=== PATIENT | male | born 1955 | race Hispanic/Latino ===

== ENCOUNTER 2018-07-15 02:48 | Inpatient (IN) | payer BC, OTHER ==
[~2018-07-15] VITALS: Ht 167.6 cm; Wt 109.3 kg
[2018-07-15] VITALS (33 sets, daily range): BP systolic 73–170; BP diastolic 33–88
[2018-07-15] MEDS ORDERED: ACETAMINOPHEN EXTRA STRENGTH 500 MG TABLET ONE (03:23)
[2018-07-15] MEDS ORDERED: SODIUM CHLORIDE 0.9% 1000ML 2,000 ML IV ONE (03:23)
[2018-07-15] MEDS ORDERED: LEVOFLOXACIN 750 MG/D5W 150 ML 150 ML ONE (03:44)
[2018-07-15] MEDS ORDERED: ONDANSETRON HCL 4 MG/2 ML VIAL ONE (03:44)
[2018-07-15 03:45] LABS: CARBON DIOXIDE 26 mmol/L (21-32); CHLORIDE 99 mmol/L (101-111); CREATININE 2.1 mg/dL (0.5-1.5); GLOMERULAR FILTR. RATE CALC 34 mL/min (>60); GLUCOSE,RANDOM 120 mg/dL (70-105); POTASSIUM 3.4 mmol/L (3.5-5.1); SODIUM SERUM 135 mmol/L (136-145); UREA NITROGEN, BLOOD 46 mg/dL (7-18)
[2018-07-15] MEDS ORDERED: METRONIDAZOLE 500MG/100ML BAG 100 ML ONE (03:45)
[2018-07-15] MEDS ORDERED: MORPHINE SULFATE 4 MG/1ML SYG ONE (03:45)
[2018-07-15 03:46] LABS: INR 1.02 (0.85-1.15); PARTIAL THROMBOPLASTIN TIME 26.9 SEC (26.3-35.5); PROTHROMBIN TIME 10.7 SEC (9.6-11.6)
[2018-07-15 03:50] LABS: ALANINE AMINOTRANSFERASE 20 U/L (12-78); ALBUMIN 2.8 g/dL (3.5-5.0); ASPARTATE AMINOTRANSFERASE 22 U/L (10-37); BILIRUBIN,TOTAL 1.4 mg/dL (0.2-1.0); CREATINE KINASE, TOTAL 49 U/L (21-232); MYOGLOBIN 160 ng/mL (10-92); TOTAL PROTEIN, SERUM 6.6 g/dL (6.0-8.3); TROPONIN I < 0.04 ng/mL (0.00-0.06)
[2018-07-15 03:54] LABS: BASOPHILS % (AUTO) 0.3 % (0.0-5.0); EOSINOPHILS % (AUTO) 0.4 % (0.0-8.0); HEMATOCRIT 39.6 % (42-54); LYMPHOCYTES % (AUTO) 7.1 % (21.0-51.0); MEAN CORPUSCULAR HEMOGLOBIN 32.1 pg (27.0-33.0); MEAN CORPUSCULAR HGB CONC 34.3 g/dL (32.0-36.0); MEAN CORPUSCULAR VOLUME 93.4 fL (79-99); MONOCYTES % (AUTO) 0.6 % (3.0-13.0); NEUTROPHILS % (AUTO) 91.6 % (40.0-77.0); NUCLEATED RED BLOOD CELLS 0.5 % (0.0-0.19); PLATELET COUNT (AUTO) 166 K/uL (130-400); RED BLOOD CELL COUNT(AUTO) 4.24 MIL/uL (4.50-6.20); RED CELL DISTRIBUTION WIDTH 12.6 % (11.0-15.5)
[2018-07-15 03:58] LABS: WHITE BLOOD COUNT (AUTO) 0.8 K/uL (4.8-10.8)
[2018-07-15 05:22] LABS: BILIRUBIN,URINE Moderate (NEGATIVE); COLOR,URINE Dark Yellow (YELLOW); GLUCOSE, URINE (UA) Negative (NEGATIVE); KETONES,URINE Trace mg/dL (NEGATIVE); LEUKOCYTE ESTERASE ,URINE Trace (NEGATIVE); NITRATE,URINE Negative (NEGATIVE); OCCULT BLOOD,URINE Negative (NEGATIVE); PROTEIN,URINE POS 2+ mg/dL (NEGATIVE)
[2018-07-15 05:25] LABS: APPEARANCE,URINE SLIGHTLY CLOUDY (CLEAR)
[2018-07-15 05:45] LABS: AMORPHOUS SEDIMENT,UR Few /LPF (None Seen); BACTERIA,URINE None Seen /HPF (None Seen); RBC,URINE None Seen /HPF (0-1); SQUAMOUS EPITHELIAL CELL,UR Rare /HPF (0-2); WBC,URINE 0-1 /HPF (0-1)
[2018-07-15] MEDS ORDERED: MEROPENEM 1 GM VIAL ONE (06:11)
[2018-07-15] MEDS ORDERED: SODIUM CHLORIDE 0.9% 1000ML 1,000 ML IV ONE (06:20)
[2018-07-15] MEDS ORDERED: SODIUM CHLORIDE 0.9% 1000ML 1,000 ML IV SCH (07:00)
[2018-07-15] MEDS ORDERED: ONDA4TAB10 PO (07:49)
[2018-07-15] MEDS ORDERED: HYOS-28 PO (07:49)
[2018-07-15] MEDS ORDERED: LISI1TAB9 PO (07:49)
[2018-07-15] MEDS ORDERED: NOREPINEPHRINE BITARTRATE 1 MG/1 ML ML IV ONE (08:13)
[2018-07-15] MEDS ORDERED: SODIUM CHLORIDE 0.9% 250 ML IV ONE (08:14)
[2018-07-15] MEDS ORDERED: DEXTROSE 50%-WATER 50 ML DISP.SYRIN IV PRN (08:15)
[2018-07-15] MEDS ORDERED: ONDANSETRON HCL 4 MG/2 ML VIAL IVP PRN (08:15)
[2018-07-15] MEDS ORDERED: ACETAMINOPHEN 650 MG SUPPOSITORY RC PRN (08:15)
[2018-07-15] MEDS ORDERED: GLUCAGON 1MG KIT 1 MG ML IM PRN (08:15)
[2018-07-15] MEDS ORDERED: LIDOCAINE HCL-MPF 1% 2ML VIAL IVP PRN (08:15)
[2018-07-15] MEDS ORDERED: POTASSIUM CHLORIDE 20MEQ/100ML 100 ML IV PRN (08:15)
[2018-07-15] MEDS ORDERED: MORPHINE SULFATE 2 MG/ML 1ML SYG IVP PRN ×2 (08:30→16:45)
[2018-07-15] MEDS ORDERED: LEVOFLOXACIN 500 MG/D5W 100 ML 100 ML IV SCH (11:15)
[2018-07-15] MEDS ORDERED: INSULIN HUMULIN R 100 UNIT/ML 3ML SQ SCH (11:30)
[2018-07-15] MEDS: METRONIDAZOLE 500MG/100ML BAG 100 ML IV SCH ×3 (12:00→21:48)
[2018-07-15] MEDS: SODIUM CHLORIDE 0.9% 1000ML 1,000 ML IV SCH ×2 (12:17→16:40)
[2018-07-15] MEDS ORDERED: NOREPINEPHRINE 4MG/NS 250ML 250 ML IV SCH (12:30)
[2018-07-15] MEDS ORDERED: LIDOCAINE HCL 1% 20 ML VIAL ONE (12:35)
[2018-07-15] MEDS ORDERED: BUPIVACAINE/EPI/PF 0.5% 30ML VIAL IJ ONE (12:36)
[2018-07-15] MEDS ORDERED: BACITRACIN 50,000 UNIT VIAL ONE (12:36)
[2018-07-15] MEDS ORDERED: TBO-FILGRASTIM 480 MCG/0.8 ML ML SQ SCH ×2 (13:00→13:15)
[2018-07-15 13:02] LABS: CREATININE,URINE RANDOM 283 mg/dL (30-135); PROTEIN,URINE RANDOM 123.4 mg/dL (0-11.9); SODIUM,URINE RANDOM < 15 mmol/l (40-220)
[2018-07-15] MEDS ORDERED: KETAMINE HCL 100 MG/ML 5ML VIAL IJ ONE (13:18)
[2018-07-15] MEDS ORDERED: MIDAZOLAM HCL 1 MG/ML 2ML VIAL ONE (13:25)
[2018-07-15] MEDS ORDERED: VASOPRESSIN 20 UNITS/ML 1ML VIAL ONE (13:29)
[2018-07-15] MEDS ORDERED: ROCURONIUM 10MG/1ML SYR 10 MG/ML ML ONE ×2 (13:33→14:24)
[2018-07-15] MEDS ORDERED: SUCCINYLCHOLINE CHLORIDE 20 MG/ML 10 ML VIAL ONE (13:34)
[2018-07-15] MEDS ORDERED: PROPOFOL 10 MG/ML 20ML VIAL IV ONE (13:35)
--- NOTE | 2018-07-15 13:45 | NUR ---
INITIAL: Met with pt and family this afternoon to discuss dcp. Pt states that he lives alone. Prior to admission he was independent w ambulation and ADLs. Pt was still driving prior to admission. Per pt he feels safe and comfortable to return home at md. CM to continue to follow and wait for Md recommendations. Addendum: 07/15/18 at 1347 by CECILE CAPELLAN Amended: Links added.
[2018-07-15] MEDS ORDERED: METRONIDAZOLE 500MG/100ML BAG 100 ML IV SCH (14:00)
[2018-07-15 14:16] LABS: ABG BASE EXCESS -5.8 mmol/L (-2.0-3.0); ABG HCO3 21.1 mmol/L (21.0-28.0); ABG OXYGEN SATURATION 95.2 % (95.0-99.0); ABG PCO2 47 mmHg (35-48)
[2018-07-15] MEDS ORDERED: PROPOFOL 1000 MG/100 ML 100 ML IV ONE (16:31)
[2018-07-15] MEDS: LEVOFLOXACIN 750 MG/D5W 150 ML 150 ML IV SCH (16:45)
[2018-07-15] MEDS ORDERED: MORPHINE SULFATE 4 MG/1ML SYG IVP PRN (16:45)
[2018-07-15] MEDS ORDERED: D5W-1/2 NS/20MEQ KCL 1,000 ML IV SCH (17:00)
--- NOTE | 2018-07-15 17:45 | NUR ---
AWAKENED/RESTLESS/AGITATED - COMMUNICATES PAIN AND REORIENTED TO TIME PLACE AND CURRENT STATUS INCLUDING ETT AND BEARDEN. MEDICATED FOR PAIN
[2018-07-15] MEDS: INSULIN HUMULIN R 100 UNIT/ML 3ML SQ SCH ×2 (18:00→23:42)
--- NOTE | 2018-07-15 18:00 | NUR ---
OGT W/O DRAINAGE. PADMINI WITH SANGUINOUS DRAINAGE.
[2018-07-15] MEDS: PROPOFOL 1000 MG/100 ML 100 ML IV PRN ×2 (18:51→21:49)
[2018-07-15] MEDS ORDERED: NOREPINEPHRINE BITARTRATE 8 MG in SODIUM CHLORIDE 0.9% 250 ML IV SCH (19:15)
--- NOTE | 2018-07-15 19:30 | NUR ---
ASSESSMENT REMAINS ON VENT WITH ORDERED SETTINGS AND SEDATION. REMAINS ON REVERSE ISOLATION. ASSESSMENT COMPLETED SEE FLOW SHEET. FAMILY MEMBER AT BEDSIDE AND QUESTIONS ANSWERED. ENCOURAGED TO CALL FOR WANTS OR NEEDS. Addendum: 07/16/18 at 0304 by EHSAN PERAZA RN RN Amended: Links added.
[2018-07-15 19:48] LABS: ABG BASE EXCESS -5.7 mmol/L (-2.0-3.0); ABG HCO3 18.6 mmol/L (21.0-28.0); ABG PCO2 33 mmHg (35-48)
[2018-07-15] MEDS: LACTATED RINGERS 1000ML 1,000 ML IV SCH (20:18)
[2018-07-16] VITALS (33 sets, daily range): BP systolic 111–138; BP diastolic 46–81
[2018-07-16] MEDS: PROPOFOL 1000 MG/100 ML 100 ML IV PRN ×2 (01:00→06:23)
[2018-07-16] MEDS: LEVOFLOXACIN 750 MG/D5W 150 ML 150 ML IV SCH (04:12)
[2018-07-16] MEDS: METRONIDAZOLE 500MG/100ML BAG 100 ML IV SCH ×3 (05:32→22:28)
[2018-07-16] MEDS: INSULIN HUMULIN R 100 UNIT/ML 3ML SQ SCH ×4 (06:00→20:50)
[2018-07-16 06:50] LABS: BASOPHILS % (AUTO) 0.3 % (0.0-5.0); EOSINOPHILS % (AUTO) 11.5 % (0.0-8.0); HEMATOCRIT 36.7 % (42-54); LYMPHOCYTES % (AUTO) 1.8 % (21.0-51.0); MEAN CORPUSCULAR HEMOGLOBIN 32.5 pg (27.0-33.0); MEAN CORPUSCULAR HGB CONC 34.2 g/dL (32.0-36.0); MEAN CORPUSCULAR VOLUME 94.9 fL (79-99); MONOCYTES % (AUTO) 1.9 % (3.0-13.0); NEUTROPHILS % (AUTO) 84.5 % (40.0-77.0); NUCLEATED RED BLOOD CELLS 0.1 % (0.0-0.19); PLATELET COUNT (AUTO) 106 K/uL (130-400); RED BLOOD CELL COUNT(AUTO) 3.87 MIL/uL (4.50-6.20); RED CELL DISTRIBUTION WIDTH 13.3 % (11.0-15.5); WHITE BLOOD COUNT (AUTO) 19.6 K/uL (4.8-10.8)
[2018-07-16 07:04] LABS: ALBUMIN 1.9 g/dL (3.5-5.0); BILIRUBIN,TOTAL 1.3 mg/dL (0.2-1.0); CREATININE 2.1 mg/dL (0.5-1.5); POTASSIUM 4.1 mmol/L (3.5-5.1); TOTAL PROTEIN, SERUM 5.3 g/dL (6.0-8.3)
[2018-07-16 07:33] LABS: ABG BASE EXCESS -3.7 mmol/L (-2.0-3.0); ABG HCO3 20.5 mmol/L (21.0-28.0); ABG OXYGEN SATURATION 98.2 % (95.0-99.0); ABG PCO2 35 mmHg (35-48)
--- NOTE | 2018-07-16 08:30 | NUR ---
BILE IN THROAT: ACCORDING TO R.T. SHE SUCTIONED BILE OUT OF BACK OF THROAT - RETURN TO AC AND DIPRIVAN GIVEN - FOUND NGT COILED IN BACK OF THROAT AND REINSERTED - OBTAINED ONLY 50 CC BILE.
[2018-07-16] MEDS ORDERED: LEVOFLOXACIN 250 MG/D5W 50ML 50 ML IVPB SCH ×2 (09:00→11:00)
[2018-07-16 09:36] LABS: ABG BASE EXCESS -3.7 mmol/L (-2.0-3.0); ABG HCO3 20.6 mmol/L (21.0-28.0); ABG PCO2 35 mmHg (35-48)
[2018-07-16] MEDS: AZTREONAM 2 GM VIAL IVP SCH ×2 (11:15→21:03)
[2018-07-16] MEDS: LACTATED RINGERS 1000ML 1,000 ML IV SCH ×2 (11:17→22:28)
[2018-07-16] MEDS ORDERED: FUROSEMIDE 10 MG/ML 2ML VIAL IV SCH (19:00)
--- NOTE | 2018-07-16 20:15 | NUR ---
ASSESSMENT SITTING UP IN CHAIR. DENIES PAIN. DESIRES TO REMAIN UP IN CHAIR. ASSESSMENT COMPLETED SEE FLOW SHEET. REMINDED TO USE IS Q1H FOR 10 BREATHS TO PREVENT PNEUMONIA. ENCOURAGED TO CALL FOR WANTS OR NEEDS. Addendum: 07/16/18 at 2044 by EHSAN PERAZA RN RN Amended: Links added.
[2018-07-17] VITALS (21 sets, daily range): BP systolic 106–130; BP diastolic 48–75
[2018-07-17] MEDS: LEVOFLOXACIN 750 MG/D5W 150 ML 150 ML IV SCH (03:48)
[2018-07-17 04:11] LABS: HEMATOCRIT 35.2 % (42-54); MEAN CORPUSCULAR HEMOGLOBIN 32.3 pg (27.0-33.0); MEAN CORPUSCULAR HGB CONC 34.1 g/dL (32.0-36.0); MEAN CORPUSCULAR VOLUME 94.8 fL (79-99); PLATELET COUNT (AUTO) 86 K/uL (130-400); RED BLOOD CELL COUNT(AUTO) 3.71 MIL/uL (4.50-6.20); RED CELL DISTRIBUTION WIDTH 13.2 % (11.0-15.5); WHITE BLOOD COUNT (AUTO) 14.2 K/uL (4.8-10.8)
[2018-07-17 04:16] LABS: CREATININE 1.7 mg/dL (0.5-1.5)
[2018-07-17 04:37] LABS: BAND NEUTROPHILS % (MANUAL) 15 % (0-2); LYMPHOCYTES % (MANUAL) 3 % (22-44); MAN.DIFF COMMENT-IMPRESSION MANUAL DIFFERENTIAL; METAMYELOCYTES % 1 % (0-0); MONOCYTES % (MANUAL) 2 % (2-9); SEGMENTED NEUTROPHILS % 79 % (40-70)
[2018-07-17 04:38] LABS: PLATELET MORPHOLOGY COMMENT SLIGHTLY DECREASED
[2018-07-17] MEDS: INSULIN HUMULIN R 100 UNIT/ML 3ML SQ SCH ×4 (05:57→21:00)
[2018-07-17] MEDS: METRONIDAZOLE 500MG/100ML BAG 100 ML IV SCH ×3 (06:09→21:15)
--- NOTE | 2018-07-17 08:50 | NUR ---
MD ROUNDS DR. FLORIAN NAVARRO IN TO SEE PATIENT.
[2018-07-17] MEDS: AZTREONAM 2 GM VIAL IVP SCH ×2 (08:59→21:05)
--- NOTE | 2018-07-17 09:21 | NUR ---
PT RECEIVED IN BED, AAOX3, NO ACUTE DISTRESS NOTED. PT IS POD#2 LAP DAYLIN. ABD DRESSINGS X4 D/I, PADMINI DRAIN NOTED WITH SEROUS OUTPUT IN BULB. RIGHT IJ NOTED, CLAMPED, F/C NOTED WITH DARK LIGHT DANIELA COLORED URINE. POC DISCUSSED WITH PATIENT. INSTRUCTED ON FALL PRECAUTIONS INSTRUCTED. CALL MERINO IS WITHIN REACH, WILL CONT TO MONITOR CLOSELY. TELE WITH SR 80s. PT INSTRUCTED TO CONT WITH IS THERAPY TO PREVENT PULMONARY COMPLICATIONS. PT VOICED UNDERSTANDING.
--- NOTE | 2018-07-17 11:22 | NUR ---
MD ROUNDS DR. BENJAMIN IN TO SEE PATIENT. MD UPDATED ON STATUS. INSTRUCTED TO INITIATE WORKING WITH F/C WITH PLANS TO REMOVE TODAY. INQUIRE WITH DR. STARR REGARDING IJ LINE AND F/C.
[2018-07-17] MEDS: LACTATED RINGERS 1000ML 1,000 ML IV SCH (12:00)
--- NOTE | 2018-07-17 12:46 | NUR ---
MD ROUNDS DR. FERNANDEZ IN TO SEE PATIENT. NEW ORDERS FOR LABS RECEIVED.
--- NOTE | 2018-07-17 15:57 | NUR ---
MD ROUNDS DR. DUQUE IN TO SEE PATIENT.
--- NOTE | 2018-07-17 18:13 | NUR ---
I CALLED DR. STARR TO INQUIRE ABOUT F/C AND RIGHT IJ CENTRAL LINE. PER , STATES OKAY TO REMOVE BOTH AND ADVANCE DIET.
--- NOTE | 2018-07-17 18:28 | NUR ---
F/C REMOVED WITHOUT COMPLICATIONS. PT INSTRUCTED TO USE URINAL WHEN HE NEEDS TO VOID. PT VOICED UNDERSTANDING. DTV BY 0000.
--- NOTE | 2018-07-17 20:00 | NUR ---
ASSESSMENT PT RESTING QUIETLY IN CHAIR WATCHING T.V., FAMILY AT BEDSIDE. PT AAOX4, COOPERATIVE, NSR, ROOM AIR (+) BOWEL SOUNDS. DRSG TO ABD X4, WITH PADMINI INTACT. BRP WITH WALKER X1 ASSIST. CALLBELL REVIEWED AND WITH IN REACH. WHITE BOARD UP-DATED. ASSESSMENT COMPLETED, SEE FLOW SHEET.
--- NOTE | 2018-07-17 20:45 | NUR ---
BR/BED PT UP TO BATHROOM VIA WALKER AND RETURNED TO BATH
--- NOTE | 2018-07-17 23:55 | NUR ---
BRP BRP VIA WALKER
[2018-07-18] VITALS (15 sets, daily range): BP systolic 116–142; BP diastolic 63–93
--- NOTE | 2018-07-18 | NUR ---
CORDIS RIGHT IJ CORDIS REMOVED. PRESSURED HELD X10MIN, HEMOSTASIS OBTAINED, DRSG APPLIED AND SECURED WITH TAPE.
[2018-07-18 03:54] LABS: HEMATOCRIT 35.2 % (42-54); MEAN CORPUSCULAR HEMOGLOBIN 31.2 pg (27.0-33.0); MEAN CORPUSCULAR HGB CONC 33.3 g/dL (32.0-36.0); MEAN CORPUSCULAR VOLUME 93.7 fL (79-99); NUCLEATED RED BLOOD CELLS 0.1 % (0.0-0.19); PLATELET COUNT (AUTO) 96 K/uL (130-400); RED BLOOD CELL COUNT(AUTO) 3.76 MIL/uL (4.50-6.20)
[2018-07-18] MEDS: LEVOFLOXACIN 750 MG/D5W 150 ML 150 ML IV SCH (04:10)
[2018-07-18 04:11] LABS: CREATININE 0.9 mg/dL (0.5-1.5); POTASSIUM 3.7 mmol/L (3.5-5.1)
[2018-07-18] MEDS: METRONIDAZOLE 500MG/100ML BAG 100 ML IV SCH (06:02)
[2018-07-18] MEDS: INSULIN HUMULIN R 100 UNIT/ML 3ML SQ SCH ×3 (06:06→20:28)
--- NOTE | 2018-07-18 07:30 | NUR ---
PT RECEIVED IN BED, AAOX4,NO ACUTE DISTRESS NOTED. POD #3 LAP DAYLIN, ABD DRESSING ARE D/I. PADMINI DRAIN NOTED WITH SEROUS OUTPUT. POC DISCUSSED WITH PATIENT. PLAN FOR DOWNGRADE OUT OF ICU, PLAN TO INCREASE AMBULATION AND ADVANCE DIET. TELE WITH SR, NO FEVERS AND NO COMPLICATIONS NOTED. WILL CONT TO MONITOR CLOSELY.
--- NOTE | 2018-07-18 08:40 | NUR ---
MD ROUNDS DR. FLORIAN NAVARRO IN TO SEE PATIENT. NEW ORDER FOR POTASSIUM 20 MEQ x 1 PO.
[2018-07-18] MEDS ORDERED: POTASSIUM CHLORIDE 20 MEQ ERTAB PO SCH (08:45)
[2018-07-18] MEDS: AZTREONAM 2 GM VIAL IVP SCH (09:01)
--- NOTE | 2018-07-18 10:32 | NUR ---
PATIENT SHOWERED, ABD DRESSINGS REMOVED AND LEFT OPEN TO AIR. INCISIONS WELL APPROXIMATED, NO DRAINAGE, NO REDNESS, NO S/S OF INFECTION NOTED NOTED. ALL INCISIONS WITH STERI STRIPS INTACT. PT INSTRUCTED NOT TO REMOVE THE STERI STRIPS, THEY WILL FALL OFF ON THEIR OWN.
--- NOTE | 2018-07-18 11:17 | NUR ---
MD ROUNDS DR. DUQUE IN TO SEE PATIENT. NEW ORDERS RECEIVED TO BE CARRIED OUT. PER MD, NO PICC LINE REQUIRED,
--- NOTE | 2018-07-18 12:59 | NUR ---
ROUNDS SOPHIA ANDRES WITH DR. FERNANDEZ IN TO SEE PATIENT. PT DOWNGRADED TO MEDICAL FLOOR.
--- NOTE | 2018-07-18 15:15 | NUR ---
PT TRANSFERRED TO ROOM 323 ALONG WITH ALL BELONGINGS. REPORT GIVEN TO BRITTANY CHOWDARY.
--- NOTE | 2018-07-18 15:30 | NUR ---
PT IN ROOM AAOX3 IN NO DISTRESS, INCISION TO ABD SITE; NO BLEEDING, NO REDNESS AND DENIES ANY PAIN, LUNGS SOUNDS CLEAR TO ALL LUNG KLINE. IV PATENT. GAUZE TO RIGHT SIDE OF NECK NO BLEEDING.
--- NOTE | 2018-07-18 15:30 | NUR ---
RECEIVED PT FROM ICU, RECEIVED REPORT FROM RICARDA LEACH
[2018-07-19] VITALS (7 sets, daily range): BP systolic 117–138; BP diastolic 65–94
[2018-07-19] MEDS: LEVOFLOXACIN 750 MG/D5W 150 ML 150 ML IV SCH (03:48)
[2018-07-19] MEDS: INSULIN HUMULIN R 100 UNIT/ML 3ML SQ SCH ×4 (05:45→20:27)
[2018-07-19 05:47] LABS: BASOPHILS % (AUTO) 0.1 % (0.0-5.0); EOSINOPHILS % (AUTO) 1.2 % (0.0-8.0); HEMATOCRIT 35.2 % (42-54); HEMOGLOBIN A1C 5.7 % (4.0-6.0); LYMPHOCYTES % (AUTO) 5.8 % (21.0-51.0); MEAN CORPUSCULAR HEMOGLOBIN 32.2 pg (27.0-33.0); MEAN CORPUSCULAR HGB CONC 34.5 g/dL (32.0-36.0); MEAN CORPUSCULAR VOLUME 93.4 fL (79-99); MONOCYTES % (AUTO) 4.3 % (3.0-13.0); NEUTROPHILS % (AUTO) 88.6 % (40.0-77.0); PLATELET COUNT (AUTO) 96 K/uL (130-400); RED BLOOD CELL COUNT(AUTO) 3.78 MIL/uL (4.50-6.20); RED CELL DISTRIBUTION WIDTH 12.8 % (11.0-15.5); WHITE BLOOD COUNT (AUTO) 12.7 K/uL (4.8-10.8)
[2018-07-19 06:04] LABS: MAGNESIUM 1.7 mg/dL (1.80-2.40); PHOSPHORUS 3.9 mg/dL (2.5-4.9); POTASSIUM 3.7 mmol/L (3.5-5.1)
--- NOTE | 2018-07-19 09:17 | NUR ---
DR NAVARRO CAME TO SEE PATIENT STATES PER HIS SERVICE, PATIENT CLEARED FOR DISCHARGE
[2018-07-19] MEDS ORDERED: MAGNESIUM SULFATE 1 GM in SODIUM CHLORIDE 0.9% 50 ML IV PRN (09:30)
[2018-07-19] MEDS ORDERED: POTASSIUM CHLORIDE 20 MEQ ERTAB PO SCH (09:30)
[2018-07-19] MEDS ORDERED: MAGNESIUM 2GM PREMIX 50ML 50 ML IV ONE (10:27)
--- NOTE | 2018-07-19 11:50 | NUR ---
DC PLANNING- HOME PER PT CALL TO KARIME CHOWDARY- NEW PT TO MED SURG, XFER FORM ICU, NO PT NOTES- ASKED KARIME CHOWDARY IF PT IS WALKING IN ROOM- RN STATES UP AND AOBUT WITH NO APPARENT MOBILITY PROBS, ORDER RECD FOR SNF EVAL, PT EVAL SPOKE TO PT; PT STATES HE IS NOT GOING TO A FACILITY, NO REFERRAL MADE PRIMARY RN STATES SAFE TO AMBULATE. PT HAS FMLA PAPERS- ADVISED HIM THAT THE SURGEON HAD TO FILLS THOSE OUT FOR HIM Addendum: 07/19/18 at 1431 by POP FORBES RN Amended: Links added.
--- NOTE | 2018-07-19 14:25 | NUR ---
Dr. Falcon visited, informed him that pt stated he feels that he is bigger on left side of his abdomen than the right side since the surgery, Dr Falcon told pt that it is expected since the gall bladder was inflamed, just to give it time.
[2018-07-20 03:46] VITALS: BP 133/64
[2018-07-20] MEDS: LEVOFLOXACIN 750 MG/D5W 150 ML 150 ML IV SCH (04:32)
[2018-07-20 05:34] LABS: HEMATOCRIT 34.4 % (42-54); MEAN CORPUSCULAR HEMOGLOBIN 31.7 pg (27.0-33.0); MEAN CORPUSCULAR HGB CONC 33.9 g/dL (32.0-36.0); MEAN CORPUSCULAR VOLUME 93.5 fL (79-99); PLATELET COUNT (AUTO) 147 K/uL (130-400); RED BLOOD CELL COUNT(AUTO) 3.67 MIL/uL (4.50-6.20); RED CELL DISTRIBUTION WIDTH 12.8 % (11.0-15.5)
[2018-07-20 05:46] LABS: CREATININE 0.8 mg/dL (0.5-1.5); MAGNESIUM 1.8 mg/dL (1.80-2.40); POTASSIUM 3.8 mmol/L (3.5-5.1)
[2018-07-20] MEDS: INSULIN HUMULIN R 100 UNIT/ML 3ML SQ SCH ×4 (06:23→21:00)
[2018-07-20 08:00] VITALS: BP 120/77
[2018-07-20 12:00] VITALS: BP 127/78
[2018-07-20 16:00] VITALS: BP 133/68
--- NOTE | 2018-07-20 17:09 | NUR ---
UPDATE ON DC PLANS. MD AT BEDSIDE, DISCUSSING SNF OPTIONS, EXPLAINED TO MD THAT PT HAS INSURANCE THAT WILL REQUITRE AN IV ABX,; NEED TO KNOW HOW LONG/TYPE OF ABX AND PT; PT HAS NO PT NEEDS, WAS ENDORSED TO NURSING; NO WAY TO GET SNF AUTH; MD STATES WOULD KEEP PT A FEW MORE DAYS. FAMILY ASKING ABOUT FMLA PAPERS, PRINTED FACE SHEET AND INFO- SENT OT SURGEONS OFFICE;PT WANTS OT RETURN TO WORK SOON ABLE, NEED FMLA PAPERS SIGNED; DR. STARR WILL BE THE ONE TO DECIDE WORK LIMITATIONS, RETURN TO WORK. Addendum: 07/20/18 at 1715 by POP FORBES RN Amended: Links added.
[2018-07-20 20:00] VITALS: BP 125/68
[2018-07-20 23:52] VITALS: BP 119/75
[2018-07-21 03:58] VITALS: BP 141/74
[2018-07-21] MEDS: LEVOFLOXACIN 750 MG/D5W 150 ML 150 ML IV SCH (04:31)
[2018-07-21 04:59] LABS: MEAN CORPUSCULAR HEMOGLOBIN 32.7 pg (27.0-33.0); MEAN CORPUSCULAR VOLUME 93.5 fL (79-99); PLATELET COUNT (AUTO) 173 K/uL (130-400); RED BLOOD CELL COUNT(AUTO) 3.53 MIL/uL (4.50-6.20); RED CELL DISTRIBUTION WIDTH 12.7 % (11.0-15.5); WHITE BLOOD COUNT (AUTO) 6.3 K/uL (4.8-10.8)
[2018-07-21 05:15] LABS: CREATININE 0.8 mg/dL (0.5-1.5)
[2018-07-21] MEDS: INSULIN HUMULIN R 100 UNIT/ML 3ML SQ SCH ×3 (05:50→16:30)
[2018-07-21 08:00] VITALS: BP 144/83
[2018-07-21] MEDS ORDERED: FUROSEMIDE 10 MG/ML 2ML VIAL IV SCH (09:00)
[2018-07-21 11:54] VITALS: BP 117/69
[2018-07-21 15:36] VITALS: BP 119/68
== END 2018-07-21 19:10 | disposition home or self-care (01) | DRG 853 ==
LOC: EDH 02:48 → EDHIP 06:31 → 2AH 08:01 → 2BH 08:32 → 3DH 07-18 15:20
PROVIDERS: ADMIT Family Medicine; ATTEND Family Medicine
PROC: 02HV33Z Insertion of Infusion Device into Superior Vena Cava, Percutaneous Approach (ICD-10-PCS; 2018-07-15)
PROC: 5A1935Z Respiratory Ventilation, Less than 24 Consecutive Hours (ICD-10-PCS; 2018-07-15)
PROC: 0BH17EZ Insertion of Endotracheal Airway into Trachea, Via Natural or Artificial Opening (ICD-10-PCS; 2018-07-15)
PROC: 0FT44ZZ Resection of Gallbladder, Percutaneous Endoscopic Approach (ICD-10-PCS; principal; 2018-07-15 11:00)
PROC: 5A1935Z Respiratory Ventilation, Less than 24 Consecutive Hours (ICD-10-PCS; 2018-07-16)
DX: A41.51 Sepsis due to Escherichia coli [E. coli] (principal); R65.21 Severe sepsis with septic shock; J96.90 Respiratory failure, unspecified, unspecified whether with hypoxia or hypercapnia; E87.1 Hypo-osmolality and hyponatremia; J98.11 Atelectasis; N18.4 Chronic kidney disease, stage 4 (severe); N17.9 Acute kidney failure, unspecified; K80.00 Calculus of gallbladder with acute cholecystitis without obstruction; E66.01 Morbid (severe) obesity due to excess calories; E11.22 Type 2 diabetes mellitus with diabetic chronic kidney disease; I12.9 Hypertensive chronic kidney disease with stage 1 through stage 4 chronic kidney disease, or unspecified chronic kidney disease; D70.9 Neutropenia, unspecified; E83.42 Hypomagnesemia; E86.9 Volume depletion, unspecified; E87.6 Hypokalemia; K59.00 Constipation, unspecified; N28.1 Cyst of kidney, acquired; R50.81 Fever presenting with conditions classified elsewhere; K82.A1 Gangrene of gallbladder in cholecystitis; Z68.38 Body mass index [BMI] 38.0-38.9, adult; Z88.0 Allergy status to penicillin; Z82.3 Family history of stroke; Z83.3 Family history of diabetes mellitus; Z98.84 Bariatric surgery status; Z79.899 Other long term (current) drug therapy
CPT/HCPCS: 36415; 36600; 71045; 74176; 76705; 80048; 80053; 81001; 82435; 82550; 82570; 82803; 82947; 82948; 83036; 83605; 83690; 83735; 83874; 83880; 84100; 84132; 84156; 84295; 84300; 84484; 85018; 85025; 85027; 85060; 85610; 85730; 87040; 87077; 87088; 87186; 88304; 93005; 94002; 94003; 99291; G0378; J0330; J1940; J1956; J2185; J2250; J2270; J2405; J2704; J3475; J3480; J3490; J7030; J7120